=== PATIENT | female | born 1930 | race Caucasian/White ===

== ENCOUNTER 2017-02-20 10:45 | Observation (INO) ==
[2017-02-20] MEDS ORDERED: 0.9 % Sodium Chloride 1,000 ML IVC ONE ×2 (11:06→11:48)
--- NOTE | 2017-02-20 11:27 | Emergency Department Note ---
Disposition Clinical Impression: UTI (urinary tract infection), Vasovagal syncope Disposition: Admitted As Inpatient Condition: Fair Referrals: Scotty Ya DO [Primary Care Provider] - Forms: ED Satisfaction Letter Time of Disposition: 12:46 Syncope HPI - General Chief Complaint: ED Syncope Stated Complaint: Syncope Time Seen by Provider: 02/20/17 10:59 Source: patient, family Limitations: no limitations Nursing Notes Reviewed: Yes Vital Signs Reviewed: Yes - History of Present Illness HPI Narrative: Patient presents to the ED with the chief complaint of syncope. Patient reports that she has been feeling fine recently. States that she was sitting at her dining room table this morning and the next thing she knew her niece was shaking her and telling her to wake up. She apparently had a syncopal episode. There was no seizure-like activity. Reports that when she woke up, she became very nauseated and vomited twice. States that she feels very weak all over. She also states that she feels slightly lightheaded and like her ears are stuffy. She denies any chest pain, discomfort, heaviness or shortness of breath. There is no associated abdominal pain. 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 - Related Data Allergies Allergy/AdvReac Type Severity Reaction Status Date / Time celecoxib [From Celebrex] AdvReac Vomiting Verified 09/05/15 10:00 codeine AdvReac Vomiting Verified 09/05/15 10:00 piroxicam [From Feldene] AdvReac See Verified 09/05/15 10:00 Comments All systems ED: reviewed and negative except as stated. Constitutional: Reports: weakness Eyes: Denies: vision change Cardiovascular: Denies: chest pain Respiratory: Denies: dyspnea Gastrointestinal: Reports: nausea, vomiting Musculoskeletal: Denies: back pain, neck pain Neurological: Reports: as per HPI Endocrine: Reports: fatigue Past Medical History - Past Medical History Attestation: Yes The following information was validated with the patient. Source: patient Medical history: Reports: DVT, diabetes, hypertension - Social History Smoking Status: Never smoker Alcohol use: Reports: none Drug use: Reports: none Physical Exam - General General appearance: alert, in no apparent distress - Head Head exam: atraumatic, normocephalic, normal inspection - Eye Eye exam: Present: normal appearance, PERRL, EOMI - ENT ENT exam: normal exam, normal oropharynx, mucous membranes moist, other ( dentures in place ) - Neck Neck exam: Present: normal inspection, full ROM, trachea midline - Chest Chest inspection: Present: normal inspection, symmetric chest wall rise - Respiratory Respiratory exam: Present: normal lung sounds bilaterally - Cardiovascular Cardiovascular exam: Present: regular rate, normal rhythm, normal heart sounds - Abdominal Exam Abdominal exam: Present: soft, Non-Tender. Absent: tenderness, distention, guarding, rebound, rigidity - Extremities Exam Extremities exam: Present: normal inspection, full ROM, pedal edema (Bilateral lower extremity edema, nonpitting, patient reports improved). Absent: tenderness - Expanded Lower Extremity Exam Hip/Pelvis exam: Present: pelvis stable - Neurological Exam Neurological exam: Present: alert, oriented X3 - Psychiatric Psychiatric exam: Present: normal affect, normal mood - Skin Skin exam: Present: warm, dry, intact, normal color Course Course Narrative: Patient presenting to the ED after a syncopal episode. Patient vital signs currently stable. Will workup with disposition pending. 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 Unclear if this could be cardiogenic or neurologic in origin. We will admit to the hospitalist service. No active bleeding. We will obviously have her hold her Coumadin. No signs of bleeding currently. Urinalysis is pending. Microscopy, but she does have large leuk esterase, we will go ahead and dose her with Rocephin while microscopy and culture is pending. Vital Signs Temperature 97.3 F L 02/20/17 10:57 Pulse Rate 74 02/20/17 10:57 Respiratory Rate 22 02/20/17 10:57 Blood Pressure 142/77 02/20/17 10:57 O2 Sat by Pulse Oximetry 100 02/20/17 10:57 Temperature 97.3 F L 02/20/17 10:57 Pulse Rate 72 02/20/17 12:22 Respiratory Rate 22 02/20/17 12:22 Blood Pressure 106/63 02/20/17 12:22 O2 Sat by Pulse Oximetry 99 02/20/17 12:22 Oxygen Delivery Oxygen Delivery Room Air Syncope - Lab Data Result diagrams: 02/20/17 11:25 02/20/17 11:25 Lab Results 02/20/17 02/20/17 02/20/17 Range/Units 11:25 11:25 11:25 WBC 7.4 (4.3-11.1) K/mcL RBC 3.75 L (3.82-4.97) M/mcL Hgb 11.6 (11.5-15.4) g/dL Hct 34.7 L (35.3-44.9) % MCV 92.5 (83.0-100.0) fL MCH 30.9 (28.0-33.3) pg MCHC 33.4 (31.6-35.5) g/dL RDW 12.9 (11.5-14.5) % Plt Count 192 (140-400) K/mcL MPV 10.9 (9.4-12.4) fL Immature Gran % 0.3 (0-4) % Seg Neutrophils % 64.0 % Lymphocytes % 26.1 % Monocytes % 7.3 % Eosinophils % 1.8 % Basophils % 0.5 % Neutrophils # 4.7 (1.6-8.9) K/mcL Lymphocytes # 1.9 (0.6-4.6) K/mcL Monocytes # 0.5 (0.0-1.3) K/mcL Eosinophils # 0.1 (0.0-0.6) K/mcL Basophils # 0.0 (0.0-0.2) K/mcL PT 48.2 H* (9.4-12.1) Seconds INR 4.3 APTT 47.2 H (26.0-36.0) Seconds Sodium 138 (136-145) mEq/L Potassium 4.3 (3.5-4.5) mEq/L Chloride 106 (98-109) mEq/L Carbon Dioxide 17 L (19-29) mEq/L BUN 39 H (7-20) mg/dL Creatinine 1.51 H (0.57-1.11) mg/dL Est GFR ( Amer) 40 L (> 60) Est GFR (Non-Af Amer) 33 L (> 60) BUN/Creatinine Ratio 26 (6-26) Glucose 226 H (70-99) mg/dL Calculated Osmolality 302 H (280-300) Lactic Acid (0.5-2.2) mmol/L Calcium 9.8 (8.6-10.8) mg/dL Troponin I (0-0.03) ng/mL Urine Color (Yellow) Urine Clarity (Clear) Urine pH (5.0-8.0) pH Units Ur Specific [place] (1.010-1.025) Urine Protein (Neg-Trace) mg/dL Urine Glucose (UA) (Normal) mg/dL Urine Ketones (Negative) mg/dL Urine Blood (Negative) Urine Nitrite (Negative) Urine Bilirubin (Negative) Urine Urobilinogen (Normal) mg/dL Ur Leukocyte Esterase (Negative) 02/20/17 02/20/17 02/20/17 Range/Units 11:25 11:25 12:03 WBC (4.3-11.1) K/mcL RBC (3.82-4.97) M/mcL Hgb (11.5-15.4) g/dL Hct (35.3-44.9) % MCV (83.0-100.0) fL MCH (28.0-33.3) pg MCHC (31.6-35.5) g/dL RDW (11.5-14.5) % Plt Count (140-400) K/mcL MPV (9.4-12.4) fL Immature Gran % (0-4) % Seg Neutrophils % % Lymphocytes % % Monocytes % % Eosinophils % % Basophils % % Neutrophils # (1.6-8.9) K/mcL Lymphocytes # (0.6-4.6) K/mcL Monocytes # (0.0-1.3) K/mcL Eosinophils # (0.0-0.6) K/mcL Basophils # (0.0-0.2) K/mcL PT (9.4-12.1) Seconds INR APTT (26.0-36.0) Seconds Sodium (136-145) mEq/L Potassium (3.5-4.5) mEq/L Chloride (98-109) mEq/L Carbon Dioxide (19-29) mEq/L BUN (7-20) mg/dL Creatinine (0.57-1.11) mg/dL Est GFR ( Amer) (> 60) Est GFR (Non-Af Amer) (> 60) BUN/Creatinine Ratio (6-26) Glucose (70-99) mg/dL Calculated Osmolality (280-300) Lactic Acid 3.5 H (0.5-2.2) mmol/L Calcium (8.6-10.8) mg/dL Troponin I 0.00 (0-0.03) ng/mL Urine Color Yellow (Yellow) Urine Clarity Cloudy A (Clear) Urine pH 7.0 (5.0-8.0) pH Units Ur Specific [place] 1.022 (1.010-1.025) Urine Protein Trace (Neg-Trace) mg/dL Urine Glucose (UA) Normal (Normal) mg/dL Urine Ketones 15 H (Negative) mg/dL Urine Blood Negative (Negative) Urine Nitrite Negative (Negative) Urine Bilirubin Negative (Negative) Urine Urobilinogen Normal (Normal) mg/dL Ur Leukocyte Esterase Large H (Negative) - EKG Data EKG attestation: Yes I reviewed and interpreted this EKG. EKG results narrative: Sinus rhythm with first-degree AV block, rate 71, FL interval 288, QRS 142, QTC 448, right bundle branch block that is unchanged from previous on 09/02/2015 S.Devante - Luis Situation: Demographics, MOA Background: Presenting Complaint, Relevant PMH, Meds, & Allergies Assessment: Vital Signs, Course and respsone to treatment, Exam Concerns, Patient/Family Expectation, Pertinant Lab Results, Outstanding Labs Recommendation: Barrier(s) to disposition, Recommendation based on pending studies, treatments, or consults S.B.A.Monica Report Given to: Berny Smith Repor Time: 12:47
[2017-02-20 11:33] LABS: Basophils % 0.5 %; Eosinophils # 0.1 K/mcL (0.0-0.6); Eosinophils % 1.8 %; Hematocrit 34.7 % (35.3-44.9); Hemoglobin 11.6 g/dL (11.5-15.4); Immature Granulocytes % 0.3 % (0-4); Lymphocytes # 1.9 K/mcL (0.6-4.6); Lymphocytes % 26.1 %; Mean Corpuscular HGB Conc 33.4 g/dL (31.6-35.5); Mean Corpuscular Hemoglobin 30.9 pg (28.0-33.3); Mean Corpuscular Volume 92.5 fL (83.0-100.0); Mean Platelet Volume 10.9 fL (9.4-12.4); Monocytes # 0.5 K/mcL (0.0-1.3); Monocytes % 7.3 %; Neutrophils # 4.7 K/mcL (1.6-8.9); Platelet Count 192 K/mcL (140-400); Red Blood Count 3.75 M/mcL (3.82-4.97); Red Cell Distribution Width 12.9 % (11.5-14.5)
[2017-02-20 11:40] LABS: Activated Partial Thrombo Time 47.2 Seconds (26.0-36.0)
[2017-02-20 11:42] LABS: INR 4.3
[2017-02-20 11:44] LABS: Prothrombin Time 48.2 Seconds (9.4-12.1)
[2017-02-20 11:45] LABS: Calcium 9.8 mg/dL (8.6-10.8); Potassium 4.3 mEq/L (3.5-4.5)
--- NOTE | 2017-02-20 12:13 | Emergency Department Note ---
START Narrative - START START: I examined this patient and my medical decision-making was reviewed with the Resident Physician. I agree with the documented findings, disposition and treatment plan as described except to the extent set forth below. 86 showed female presents for syncope while sitting at the table today. Patient apparently slumped over in her seat. Family thought she was unresponsive for around a minute. No history of such in the past. Workup for syncope with cardiac etiology versus a neurocardiogenic syncope. 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 She is also having some hearing difficulties. Patient will need to be admitted.
[2017-02-20 12:31] LABS: Bilirubin,Urine Negative (Negative); Blood,Urine Negative (Negative); Clarity,Urine Cloudy (Clear); Color,Urine Yellow (Yellow); Glucose,Urine (UA) Normal (Normal); Ketones,Urine 15 mg/dL (Negative); Leukocyte Esterase,Urine Large (Negative); Nitrite,Urine Negative (Negative); Protein,Urine Trace mg/dL (Neg-Trace); Specific Gravity,Urine 1.022 (1.010-1.025); Urobilinogen,Urine Normal (Normal)
[2017-02-20 12:37] LABS: Bacteria,Urine Moderate per hpf (None-Few); Hyaline Casts,Urine None Seen per lpf (None-Few); Squamous Epithelial Cell,Urine Moderate per lpf (None-Few); WBC,Urine 50-100 per hpf (0-3)
[2017-02-20 12:47] LABS: RBC,Urine 0-3 per hpf (0-3)
[2017-02-20] MEDS ORDERED: Ondansetron 4 MG/2 ML VIAL IVP PRN (13:29)
[2017-02-20] MEDS ORDERED: Naloxone 0.4 MG/ML INJ IVP PRN (13:29)
[2017-02-20] MEDS ORDERED: Acetaminophen 325 MG TABLET PO PRN (13:29)
[2017-02-20] MEDS ORDERED: D5% in Water 1,000 ML IVC PRN (13:57)
[2017-02-20] MEDS ORDERED: *HR* Dextrose 50 % in Water (Syg) 50 ML SYRINGE IVP PRN (13:57)
[2017-02-20] MEDS ORDERED: Dextrose Gel 15 GM PO PRN ×2 (13:57)
--- NOTE | 2017-02-20 14:02 | Internal Med History&Physical ---
Date of Encounter: 02/21/17 Time of Encounter: 14:02 Assessment and Plan (1) Syncope Current visit: Yes Status: Acute 1 patient had syncopal episode this a.m. after awaking began to vomit and had a second syncopal episode. She also experienced temporary hearing loss Differential that could contribute to this episode include stroke: CT of head does show old infarct as well as patient has history of hypertension she is on Coumadin for past history of DVT. Patient does have a urinary tract infection which could have contributed to the episode, patient is on blood pressure medications possibly orthostatic hypotension or cardiac event. We will obtain an MRI 2 continuous cardiac monitoring 3 we will obtain cardiac echo 4 obtain carotid Dopplers 5 obtain lipid profile and start on statin Lipitor 40 6 aspirin daily 7 neurological assessments 8 fall precautions 9 consult neurology as needed 10 consult PT and OT 11 obtain orthostatic vital signs Qualifiers: Syncope type: unspecified Qualified Code(s): R55 - Syncope and collapse (2) Hypertension Current visit: Yes Status: Acute 1 we will continue with amlodipine as well as clonidine. We will hold Lasix and lisinopril for now. Patient did have a syncopal episode unsure this is contributing to orthostatic hypotension. We will check vital signs Qualifiers: Hypertension type: essential hypertension Qualified Code(s): I10 - Essential (primary) hypertension (3) Diabetes mellitus Current visit: Yes Status: Acute We will hold oral medications for now. Accu-Cheks before meals at bedtime for sinus scale insulin 2 diabetic diet Qualifiers: Diabetes mellitus type: type 2 Diabetes mellitus complication status: with kidney complications Diabetes mellitus complication detail: with chronic kidney disease Diabetes mellitus truck terminal manager insulin use: without truck terminal manager use Chronic kidney disease stage: stage 3 (moderate) Qualified Code(s): E11.22 - Type 2 diabetes mellitus with diabetic chronic kidney disease; N18.3 - Chronic kidney disease, stage 3 (moderate); N18.3 - Chronic kidney disease, stage 3 (moderate) (4) Supratherapeutic international normalized ratio (INR) Current visit: Yes Status: Acute Presently INR is 4.3. We will hold tonight's dose and recheck in the a.m. Pharmacy to dose Coumadin, goal is 2.5-3 (5) History of DVT (deep vein thrombosis) Current visit: No Status: Chronic Patient has had history of DVT 2. Last incident occurred 2 years ago. She is on Coumadin. We will continue check INRs daily adjust per pharmacy to dose (6) UTI (urinary tract infection) Current visit: Yes Status: Acute Urinalysis indicative of UTI we will start her on Rocephin. Awaiting sensitivity Qualifiers: Urinary tract infection type: site unspecified Hematuria presence: without hematuria Qualified Code(s): N39.0 - Urinary tract infection, site not specified (7) DVT prophylaxis Current visit: Yes Status: Acute Patient is on Coumadin Internal Medicine - H&P: HPI Chief complaint: syncope Admitted From: Emergency Dept Plans for Post Hospital Care: Home History of present illness: Ms. Jones is a 86 year old female with a past medical history of diabetes CKD stage III history of DVTs on Coumadin. According to the patient she has been her usual state of health she woke this morning complete her daily routine. She was at her kitchen table and had a syncopal episode which was witnessed by her niece. Episode lasted less than a minute when she aroused she vomited several times. Then had another episode where she lost consciousness for a few seconds,again this was witnessed. There was no jerking or loss of bowel bladder. She denied any palpitations headaches short of breath or chest pain prior to the episode. Afterward she did experience some hearing loss. She felt as if her head was congested and everything sounded muffled. Her hearing has returned back to baseline. She presented to the ER with the above complaints. ER workup CT of head with contrast revealed remote infarct posterior right parietal. Lab work with no leukocytosis chemistry with elevated creatinine . INR is supratherapeutic at 4.3 lactate was 3.5 urine was positive UTI she denies any fevers chills chest pain shortness of breath abdominal pain palpitations headaches vision changes or urinary symptoms alert appropriate neurologically intact with no focal deficits no ataxia or facial droop. She has been admitted for further workup and evaluation. Present she is hemodynamically stable and could review this case with Dr. Pedraza who agrees with plan. Past Med Surg Social Fam HX - Past Medical History Medical history: DVT, diabetes, hypertension - Social History Smoking Status: Never smoker Alcohol use: none Drug use: none - Family History Father Living Status: Cause of : MD Hx Family Cardiac Disorders: Yes (MD) Mother Living Status: Hx Family Cardiac Disorders: Yes (MD) Hx Family Endocrine Disorder: Yes (DI) Internal Medicine - H&P: Meds Amlodipine Besylate 10 mg PO DAILY 02/20/17 [History] Cholecalciferol (Vitamin D3) [Vitamin D] 2,000 unit PO DAILY 02/20/17 [History] Ferrous Sulfate [Iron] 325 mg PO DAILY 02/20/17 [History] Fish Oil/Dha/Epa [Fish Oil 1,200 mg Fish Oil] 1 cap PO DAILY 02/20/17 [History] Furosemide [Lasix] 40 mg PO DAILY 02/20/17 [History] L. Acidophilus/Pectin, [place] [Acidophilus Probiotic Capsule] 1 cap PO DAILY [History] Lisinopril [Zestril] 20 mg PO BID 02/20/17 [History] Multivitamin [Multivitamins] 1 tab PO DAILY 02/20/17 [History] Warfarin [Coumadin] 2.5 mg PO SUMOWEFR 02/20/17 [History] Warfarin [Coumadin] 3.75 mg PO TUTHSA 02/20/17 [History] cloNIDine HCl [Clonidine HCl] 0.3 mg PO BID 02/20/17 [History] glipiZIDE [Glipizide] 10 mg PO BID 02/20/17 [History] metFORMIN [Glucophage] 1,000 mg PO BID 02/20/17 [History] 3 Allergy/AdvReac Type Severity Reaction Status Date / Time celecoxib [From Celebrex] AdvReac Vomiting Verified 09/05/15 10:00 codeine AdvReac Vomiting Verified 09/05/15 10:00 piroxicam [From Feldene] AdvReac See Verified 09/05/15 10:00 Comments All Systems PM: A 10-system review of systems was performed and is negative for pertinent findings except as documented above in the HPI. - Constitutional Constitutional: no chills, no fever(s), no night sweats - EENT Eyes: no change in vision, no discharge, no pain, no photophobia Ears: decreased hearing Nose, mouth and throat: no dysphagia, no nasal discharge, no neck pain, no sore throat - Cardiovascular Cardiovascular ROS IM: no chest pain, no diaphoresis, no dyspnea, no lightheadedness, no palpitations, no syncope - Respiratory Respiratory: no cough, no dyspnea, no wheezing, no excessive phlegm production - Gastrointestinal Gastrointestinal: nausea, vomiting, no abdominal pain, no diarrhea, no hematemesis, no hematochezia, no melena - Genitourinary Genitourinary: no change in urinary stream, no dysuria, no flank pain, no hematuria - Integumentary Integumentary IM: no rash, no unusual bruising - Neurological Neurological ROS: no confusion, no convulsions, no focal weakness, no numbness, no tingling, no tremor(s) - Constitutional Vitals: Temp Pulse Resp BP Pulse Ox 97.3 F L 72 16 136/61 99 02/20/17 10:57 02/20/17 12:22 02/20/17 13:48 02/20/17 13:48 02/20/17 12:22 General appearance: Present: A&O X 3, answers questions appropriately - Head Head exam: Present: atraumatic, normocephalic - Eye Eye exam: Present: PERRL, conjuntiva pink, sclera anicteric Pupils: Present: PERRL - Neck Neck exam general surgery: Present: supple, trachea midline. Absent: lymphadenopathy - Respiratory Respiratory exam: Present: CTAB. Absent: accessory muscle use, rales, rhonchi, wheezes - Cardiovascular Cardiovascular exam: Present: RRR, +S1, +S2, systolic murmur. Absent: diastolic murmur, gallop, rubs - GI/Abdominal GI/Abdominal exam: Present: normal bowel sounds, soft, no peritoneal signs. Absent: distended, tenderness - Extremities Exam Extremities exam: Present: warm, radial pulses palpable and symmetrical. Absent : calf tenderness, cyanotic, pedal edema - Neurological Exam Neurological exam: Present: CN II-XII intact, oriented X3, no focal deficits. Absent: pronater drift, facial droop, speech deficit - Skin Skin exam: Present: dry, intact Internal Med - H&P Results - Labs CBC & Chem 7: 02/20/17 11:25 02/20/17 11:25 - EKG Data EKG shows normal: sinus rhythm - EKG Data Prior EKG available for review: yes EKG comments: 02/20/17 15:32 Patient has sinus rhythm with right bundle-branch block and first-degree AV block which appears to be new from previous EKG which only shows right bundle branch - Diagnostic Studies Other Images Additional comments: Chest X-Ray 02/20/17 11:06 IMPRESSION: No acute cardiopulmonary findings. D/ / Loraine Carvalho MD / Loraine Carvalho MD Interpreting Provider: Loraine Carvalho MD Head CT 02/20/17 11:06 IMPRESSION: No hemorrhage or mass Mild atrophy with mild small vessel ischemic change. More focal remote infarct is seen in the posterior right parietal lobe D/ / Tonny Giraldo MD / Tonny Giraldo MD Interpreting Provider: Tonny Giraldo MD
[2017-02-20] MEDS: Insulin LISPRO 300 UNITS/3 ML VIAL SQ SCH ×2 (16:50→23:33)
[2017-02-20] MEDS ORDERED: Warfarin perPT PO PRN (18:00)
--- NOTE | 2017-02-20 19:14 | Event Note ---
Date of Encounter: 02/20/17 Time of Encounter: 19:11 I independently obtained history and examined this patient and my medical decision-making was reviewed with the nurse practitioner, Beba Page. I agree with the documented findings, disposition and treatment plan as described. My findings are summarized below: She was brought to the hospital for evaluation of syncope. No prodromal syndrome. No chest pain, no preceding illnesses. No history of dehydration. She does take several blood pressure medications including clonidine and metoprolol amlodipine lisinopril and Lasix. On exam she is in no acute distress awake alert oriented heart is regular S1-S2 with a systolic murmur best heard at the apex. EKG reveals normal sinus rhythm rate of 74 with a first-degree A-V block and right bundle branch block old when compared to the EKG from August 2015. Plan: Workup for syncope including Telemetry, echocardiogram, trend troponin. Check MRI of the brain. I would add a consult to cardiology and possibly Holter monitoring on discharge to detect pauses or bradyarrhythmia given sudden onset of symptoms and EKG with AV block and right bundle branch block.
[2017-02-20] MEDS ORDERED: Lisinopril 20 MG TABLET PO SCH (21:00)
[2017-02-20] MEDS: cloNIDine HCl 0.1 MG TABLET PO SCH (23:56)
[2017-02-21 05:35] LABS: Basophils % 0.6 %; Eosinophils # 0.2 K/mcL (0.0-0.6); Eosinophils % 2.6 %; Hematocrit 32.9 % (35.3-44.9); Hemoglobin 10.8 g/dL (11.5-15.4); Immature Granulocytes % 0.3 % (0-4); Lymphocytes # 2.4 K/mcL (0.6-4.6); Lymphocytes % 34.2 %; Mean Corpuscular HGB Conc 32.8 g/dL (31.6-35.5); Mean Corpuscular Hemoglobin 30.9 pg (28.0-33.3); Mean Platelet Volume 10.9 fL (9.4-12.4); Monocytes # 0.7 K/mcL (0.0-1.3); Monocytes % 9.6 %; Neutrophils # 3.6 K/mcL (1.6-8.9); Platelet Count 196 K/mcL (140-400); Red Cell Distribution Width 13.3 % (11.5-14.5); Segmented Neutrophils % 52.7 %
[2017-02-21 05:44] LABS: INR 4.2
[2017-02-21 05:48] LABS: Prothrombin Time 47.1 Seconds (9.4-12.1)
[2017-02-21 05:49] LABS: Chol/HDL Ratio 3.8 (0-4.9); Magnesium 1.9 mg/dL (1.6-2.6); Potassium 4.2 mEq/L (3.5-4.5)
[2017-02-21] MEDS ORDERED: amLODIPine 5 MG TABLET PO SCH (09:00)
[2017-02-21] MEDS: Insulin LISPRO 300 UNITS/3 ML VIAL SQ SCH ×4 (09:01→20:24)
[2017-02-21] MEDS: Multivit/Ca/Min/Fe/FA 1 TAB TABLET PO SCH (09:09)
[2017-02-21] MEDS: Lactobacillus 1 EACH CAP.SPRINK PO SCH (09:09)
[2017-02-21] MEDS: Furosemide 40 MG TABLET PO SCH (09:09)
[2017-02-21] MEDS: cloNIDine HCl 0.1 MG TABLET PO SCH ×2 (09:09→20:24)
[2017-02-21] MEDS: (Fish Oil/Dha/Epa [Fish Oil 1,200 Mg Fish Oil] 1 CAP) PO SCH (09:11)
--- NOTE | 2017-02-21 11:44 | Cardiology Consult Note ---
Date of Encounter: 02/21/17 Time of Encounter: 11:43 Assessment and Plan (1) Syncope Current Visit: Yes Status: Acute Cardiac work-up includes troponin that is negative. EKG shows SR, RBBB, with first degree block. No change from previous. TTE completed showed LVEF 65%. Normal left ventricular size and systolic function. There is evidence of mild diastolic dysfunction of the left ventricle. Normal right ventricular size and function. Mild aortic regurgitation. Moderate mitral regurgitation. Mild-moderate tricuspid regurgitation. Mild pulmonary hypertension. Telemetry shows NSR. Avg HR was 68 bpm. Lowest HR 52 BPM at 0400am. No pauses. No VT. Preliminary CUS was negative. No findings to account for syncopal event from cardiac standpoint seen at this time. No indication for further cardiac testing. Qualifiers: Syncope type: unspecified Qualified Code(s): R55 - Syncope and collapse Discussion w patient/family: The assessment and plan as outlined above was discussed with the patient and/or family members who expressed understanding and agreement. All questions were answered. Thank you for involving us in the care of your patient. Please call with any questions. History of Present Illness Consult date: 02/21/17 Requesting physician: Erick Pedraza Consult reason: Syncope Chief complaint: Syncope x2, nausea and vomiting History of present illness: Ms. Jones is a 86 year old female who presented from home after she was witnessed to pass out while sitting in her kitchen dinning chair. Her niece had just walked in to have lunch with her. She reported that she did not fall forward , she became rigid and unresponsive. She started to vomit after waking up. Her nephew walked her to another chair where she passed out again. She reports having difficulty hearing after waking up. She did have a MRI of her head that showed no acute event. The was an old infarct . EKG showed SR with first degree block. There was no change from previous EKG. Troponin was negative. She was found to have mild LESLEY and a UTI. Cardiology consulted for syncope. PMH of HTN. 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 Past Med Surg Social Fam HX - Past Medical History Medical history: DVT, diabetes, hypertension - Past Surgical History Surgical History: appendectomy, cholecystectomy - Social History Smoking Status: Never smoker Smokeless Tobacco Status: No Alcohol use: none Drug use: none - Family History Father Living Status: Cause of : MS Hx Family Cardiac Disorders: Yes (MS) Mother Living Status: Hx Family Cardiac Disorders: Yes (MS) Hx Family Endocrine Disorder: Yes (DI) Medications and Allergies Amlodipine Besylate 10 mg PO DAILY 02/20/17 [History] Cholecalciferol (Vitamin D3) [Vitamin D] 2,000 unit PO DAILY 02/20/17 [History] Ferrous Sulfate [Iron] 325 mg PO DAILY 02/20/17 [History] Fish Oil/Dha/Epa [Fish Oil 1,200 mg Fish Oil] 1 cap PO DAILY 02/20/17 [History] Furosemide [Lasix] 40 mg PO DAILY 02/20/17 [History] L. Acidophilus/Pectin, [place] [Acidophilus Probiotic Capsule] 1 cap PO DAILY [History] Lisinopril [Zestril] 20 mg PO BID 02/20/17 [History] Multivitamin [Multivitamins] 1 tab PO DAILY 02/20/17 [History] Warfarin [Coumadin] 2.5 mg PO SUMOWEFR 02/20/17 [History] Warfarin [Coumadin] 3.75 mg PO TUTHSA 02/20/17 [History] cloNIDine HCl [Clonidine HCl] 0.3 mg PO BID 02/20/17 [History] glipiZIDE [Glipizide] 10 mg PO BID 02/20/17 [History] metFORMIN [Glucophage] 1,000 mg PO BID 02/20/17 [History] 3 Allergy/AdvReac Type Severity Reaction Status Date / Time celecoxib [From Celebrex] AdvReac Vomiting Verified 09/05/15 10:00 codeine AdvReac Vomiting Verified 09/05/15 10:00 piroxicam [From Feldene] AdvReac See Verified 09/05/15 10:00 Comments All Systems Review: A 10-system review of systems was performed and is negative for pertinent findings except as documented above in the HPI. Physical Examination Vital Signs Temp Pulse Resp BP Pulse Ox 02/21/17 11:54 97.9 F 59 16 130/61 98 02/21/17 06:52 98.3 F 61 15 155/76 98 02/21/17 03:34 98.3 F 56 16 132/60 97 02/20/17 23:41 97.5 F L 77 16 171/64 95 02/20/17 19:19 98.4 F 80 16 146/75 97 02/20/17 15:24 98.5 F 82 16 150/65 97 02/20/17 13:48 16 136/61 02/20/17 12:22 72 22 106/63 99 Intake and Output 02/20/17 02/21/17 02/21/17 23:59 07:59 15:59 Output Total 1000 / 1000 300 / 300 300 / 300 Balance -1000 / -1000 -300 / -300 -300 / -300 Output: Urine 1000 / 1000 300 / 300 300 / 300 Other: Weight 88.054 kg Blood Glucose* 140 151 157 Patient Weight 02/21/17 23:59 Weight 88.054 kg General: Conversant, No Apparent Distress HEENT: Atraumatic, Normocephaly, Mucus Membranes Moist Neck: No JVD, Normal carotid pulses Cardiac: Reg Rate and Rhythm, Normal S1 and S2, No Murmur Lungs: Normal Breath Sounds, No Wheeze, Rales, Rhonchi Neuro: Alert and responsive, No focal deficits noted Abdomen: Soft, Non-Tender Skin: No rashes noted on visualized skin Musculoskeletal: No Chest Wall Tenderness Extremities: No Clubbing, No Cyanosis, Normal Pulses, Other (LLE trace edema. TRISTAN hose intact. ) Results 02/21/17 05:06 02/21/17 05:06 Lab Results 02/20/17 02/20/17 02/21/17 16:59 23:47 05:06 WBC 6.9 Hgb 10.8 L Hct 32.9 L Plt Count 196 INR Sodium Potassium Chloride Carbon Dioxide BUN Creatinine Glucose Calcium Magnesium Troponin I 0.00 0.01 02/21/17 02/21/17 05:06 05:06 WBC Hgb Hct Plt Count INR 4.2 Sodium 139 Potassium 4.2 Chloride 110 H Carbon Dioxide 23 BUN 24 H D Creatinine 1.09 Glucose 157 H Calcium 9.0 Magnesium 1.9 Troponin I Chest X-Ray 02/20/17 11:06 IMPRESSION: No acute cardiopulmonary findings. D/ / Loraine Carvalho MD / Loraine Carvalho MD Interpreting Provider: Loraine Carvalho MD Head CT 02/20/17 11:06 IMPRESSION: No hemorrhage or mass Mild atrophy with mild small vessel ischemic change. 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 D/ / Andrés Mccain / Andrés Mccain Interpreting Provider: Andrés Mccain Echocardiogram 02/21/17 13:44 Impressions: LVEF 65%. Normal left ventricular size and systolic function. There is evidence of mild diastolic dysfunction of the left ventricle. Normal right ventricular size and function. Mild aortic regurgitation. Moderate mitral regurgitation. Mild-moderate tricuspid regurgitation. Mild pulmonary hypertension. Left Ventricular Wall Motion: Rest Echo Findings All wall segments showed normal motion. - Imaging and Cardiology Echo: report reviewed - EKG Interpretation EKG results cardiology: personally reviewed Consult Discharge Plan - Plan Referrals: Scotty Ya DO [Primary Care Provider] -
[2017-02-21] MEDS: Pantoprazole 40 MG VIAL IVP SCH (14:24)
--- NOTE | 2017-02-21 18:04 | Electrocardiograph Report ---
[place] [id number] Test Date: 2017-02-20 Pat Name: Martha Jones Department: 102 Room: 3B Gender: F Steel Layer: : 1930 Requested By: Zana Diaz Order Number: [id number] Reading MD: Gio Young MD Measurements Intervals Evans Rate: 71 P: 62 AR: 288 QRS: 52 QRSD: 142 T: 13 QT: 425 QTc: 448 Interpretive Statements SINUS RHYTHM WITH FIRST DEGREE AV BLOCK RIGHT BUNDLE BRANCH BLOCK BASELINE ARTIFACT Electronically Signed On 02-21-2017 18:02:58 EDT by Gio Young MD
--- NOTE | 2017-02-21 18:16 | Internal Med Progress Note ---
Date of Encounter: 02/21/17 Time of Encounter: 14:00 - Assessment and plan (1) Syncope Current Visit: Yes Status: Acute Assessment and plan: Patient presented to the emergency department with a syncopal episode this morning after awakening. She states she began to vomit and then had a second syncopal episode. She also experienced temporary hearing loss. Patient has returned to baseline. Echocardiogram shows LVEF of 65% with normal LV systolic function, mild LVDD, mild AR, mild MR, mild to moderate TR. ALL wall segments showed normal motion. Brain MRI showed mild small vessel ischemic changes bilaterally and an old infarction right occipital pole with encephalomalacia and a small amount of hemosiderin. There is no acute infarct. Head CT without contrast showed no hemorrhage or mass, mild atrophy with mild small vessel ischemic changes. There is a more focal remote infarct posterior right parietal. Echocardiogram showed sinus rhythm with first-degree AV block and right bundle branch block. Rate was 71, NH interval 288, QRS 142, QTC 448. Chest x-ray was negative for any acute cardiopulmonary findings. Carotid Dopplers were normal bilaterally. Patient's vital signs and stable and within normal limits. Patient is mildly anemic at 10.8 hemoglobin. Serum creatinine is within normal limits, October 07. Patient had some mild hyperglycemia. Lactic acid was mildly elevated 3.5. The urine that was collected in the emergency department was cloudy positive for ketones, large amount leukocyte esterase 50-100 microscopic white cells, moderate bacteria. Culture is indicated and pending. Patient has no white count, no tachycardia and no fever and no tachypnea serum creatinine is within normal limits. She is not meeting any sepsis criteria with the UTI. Most likely cause of syncope was mild dehydration/infection versus vasovagal syncope. Continue telemetry Aspirin daily Neurological assessments Fall precautions Consult PT/OT Orthostatic vital signs ordered. Qualifiers: Syncope type: unspecified Qualified Code(s): R55 - Syncope and collapse (2) UTI (urinary tract infection) Current Visit: Yes Status: Acute Assessment and plan: The urine that was collected in the emergency department was cloudy, positive for ketones, large amount leukocyte esterase, 50-100 microscopic white cells, moderate bacteria. Culture is indicated and pending. Patient has no white count, no tachycardia and no fever and no tachypnea serum creatinine is within normal limits. She is not meeting any sepsis criteria with the UTI. She denies any urinary symptoms and states she was not aware that she had a urinary tract infection. Encourage by mouth fluid intake Rocephin 1 g IV daily. Monitor for final culture and sensitivity for any necessary antibiotic adjustments. Qualifiers: Urinary tract infection type: site unspecified Hematuria presence: without hematuria Qualified Code(s): N39.0 - Urinary tract infection, site not specified (3) Hypertension Current Visit: Yes Status: Acute Assessment and plan: Chronic. Continue home medications. Well-controlled in inpatient setting. Qualifiers: Hypertension type: essential hypertension Qualified Code(s): I10 - Essential (primary) hypertension (4) Diabetes mellitus Current Visit: Yes Status: Acute Assessment and plan: A1c is 5.4 one year ago. Will redraw in the morning. Continue sliding scale insulin, Accu-Cheks, diabetic diet. Qualifiers: Diabetes mellitus type: type 2 Diabetes mellitus complication status: with kidney complications Diabetes mellitus complication detail: with chronic kidney disease Diabetes mellitus intermission coordinator insulin use: without intermission coordinator use Chronic kidney disease stage: stage 3 (moderate) Qualified Code(s): E11.22 - Type 2 diabetes mellitus with diabetic chronic kidney disease; N18.3 - Chronic kidney disease, stage 3 (moderate); N18.3 - Chronic kidney disease, stage 3 (moderate) (5) DVT prophylaxis Current Visit: Yes Status: Acute Assessment and plan: Patient is on Coumadin. Pharmacy to dose. (6) Supratherapeutic international normalized ratio (INR) Current Visit: Yes Status: Acute Assessment and plan: INR supratherapeutic at 4.2. Coumadin has been held. - Time Spent With Patient less than 15 minutes - Subjective Interval history: Patient was seen and assessed at 1400. Patient has lost her IV access, I attempted 1. There are multiple family members at bedside, questions were answered. Patient denies chest pain. She denies nausea, vomiting, diaphoresis , abdominal pain, headache, lightheadedness. Patient will stay overnight for IV antibiotics and monitoring. - Constitutional Vitals: Temp Pulse Resp BP Pulse Ox 98.0 F 57 15 124/61 96 02/21/17 15:25 02/21/17 15:25 02/21/17 15:25 02/21/17 15:25 02/21/17 15:25 General appearance: Present: cooperative, A&O X 3, no acute distress, answers questions appropriately - Head Head exam: Present: atraumatic, normal inspection, normocephalic - Eye Eye exam: Present: normal appearance, conjuntiva pink, sclera anicteric - Neck Neck exam general surgery: Present: supple, trachea midline. Absent: lymphadenopathy, tenderness - Respiratory Respiratory exam: Present: CTAB. Absent: accessory muscle use, chest wall tenderness, rales, rhonchi, wheezes - Cardiovascular Cardiovascular exam: Present: RRR, +S1, +S2. Absent: diastolic murmur, gallop, rubs, systolic murmur - GI/Abdominal GI/Abdominal exam: Present: normal bowel sounds, soft, no peritoneal signs. Absent: distended, hepatomegaly, tenderness - Extremities Exam Extremities exam: Present: normal capillary refill, normal inspection, warm, radial pulses palpable and symmetrical. Absent: calf tenderness, cyanotic, pedal edema, tenderness - Neurological Exam Neurological exam: Present: CN II-XII intact, oriented X3, no focal deficits. Absent: facial droop, speech deficit - Skin Skin exam: Present: dry, intact, normal color, warm. Absent: rash Internal Medicine: Result - Labs CBC & Chem 7: 02/21/17 05:06 02/21/17 05:06 Labs: Short CBC 02/21/17 Range/Units 05:06 WBC 6.9 (4.3-11.1) K/mcL Hgb 10.8 L (11.5-15.4) g/dL Hct 32.9 L (35.3-44.9) % Plt Count 196 (140-400) K/mcL Neutrophils # 3.6 (1.6-8.9) K/mcL BMP 02/21/17 05:06 Sodium 139 Potassium 4.2 Chloride 110 H Carbon Dioxide 23 BUN 24 H D Creatinine 1.09 Glucose 157 H Calcium 9.0 Cardiac Enzymes 02/20/17 Range/Units 23:47 Troponin I 0.01 (0-0.03) ng/mL - ABG Interpretation ABG results: PT/INR, D-dimer PT 47.1 Seconds (9.4-12.1) H* 02/21/17 05:06 - Impressions Impressions Brain MRI 02/20/17 17:25 IMPRESSION: Mild small vessel ischemic changes bilaterally 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 D/ / Andrés Mccain / Andrés Mccain Interpreting Provider: Andrés Mccain Echocardiogram 02/21/17 13:44 Impressions: LVEF 65%. Normal left ventricular size and systolic function. There is evidence of mild diastolic dysfunction of the left ventricle. Normal right ventricular size and function. Mild aortic regurgitation. Moderate mitral regurgitation. Mild-moderate tricuspid regurgitation. Mild pulmonary hypertension. Left Ventricular Wall Motion: Rest Echo Findings All wall segments showed normal motion. Findings: Study Quality * Technically adequate exam. ECG Findings * Normal sinus rhythm. Left Ventricle * Normal LV chamber size, wall thickness and function. * Mild left ventricular diastolic dysfunction. * LVEF 65%. Aorta * Normally sized aortic root. Aortic Valve * Aortic valve not well visualized. * No aortic stenosis. * Mild aortic regurgitation. Mitral Valve * Normal mitral valve structure. * No mitral stenosis. * Moderate mitral regurgitation. Tricuspid Valve * Normal tricuspid valve structure. * Mild-moderate tricuspid regurgitation. * Estimated RA pressure is 3 mmHg. * Estimated RVSP is 37 mmHg. * Mild pulmonary hypertension. Pulmonic Valve * Pulmonic valve is not well visualized. * No pulmonic stenosis. * No pulmonic regurgitation. Pulmonary Artery * Pulmonary artery not well visualized. Right Ventricle * Normal right ventricular structure and function. Left Atrium * Normal left atrial size. Right Atrium * Normal right atrial size. Pericardium * There is no pericardial effusion present. Interatrial Septum * No evidence of PFO by color Doppler. IVC * Normal IVC dimensions and inspiratory collapse. - VTE Documentation of Mechanical Device: Graduated compression elastic hosiery Consult Discharge Plan - Plan Referrals: Scotty Ya DO [Primary Care Provider] -
[2017-02-22 03:46] LABS: Basophils % 0.6 %; Eosinophils # 0.2 K/mcL (0.0-0.6); Eosinophils % 3.4 %; Hematocrit 31.6 % (35.3-44.9); Hemoglobin 10.3 g/dL (11.5-15.4); Immature Granulocytes % 0.5 % (0-4); Lymphocytes # 2.5 K/mcL (0.6-4.6); Lymphocytes % 38.8 %; Mean Corpuscular HGB Conc 32.6 g/dL (31.6-35.5); Mean Corpuscular Volume 95.2 fL (83.0-100.0); Mean Platelet Volume 10.5 fL (9.4-12.4); Monocytes # 0.6 K/mcL (0.0-1.3); Monocytes % 9.4 %; Nucleated Red Blood Cells 0.3 /100 WBC (0); Platelet Count 182 K/mcL (140-400); Red Blood Count 3.32 M/mcL (3.82-4.97); Red Cell Distribution Width 13.1 % (11.5-14.5); Segmented Neutrophils % 47.3 %
[2017-02-22 04:08] LABS: Calcium 8.8 mg/dL (8.6-10.8); Potassium 4.5 mEq/L (3.5-4.5)
[2017-02-22] MEDS: Insulin LISPRO 300 UNITS/3 ML VIAL SQ SCH (07:47)
[2017-02-22] MEDS: (Fish Oil/Dha/Epa [Fish Oil 1,200 Mg Fish Oil] 1 CAP) PO SCH (08:28)
[2017-02-22] MEDS: Multivit/Ca/Min/Fe/FA 1 TAB TABLET PO SCH (08:35)
[2017-02-22] MEDS: Lactobacillus 1 EACH CAP.SPRINK PO SCH (08:35)
[2017-02-22] MEDS: Furosemide 40 MG TABLET PO SCH (08:35)
[2017-02-22] MEDS: Pantoprazole 40 MG VIAL IVP SCH (08:35)
[2017-02-22] MEDS: cloNIDine HCl 0.1 MG TABLET PO SCH (08:35)
--- NOTE | 2017-02-22 09:19 | Internal Med Progress Note ---
Date of Encounter: 02/22/17 - Constitutional Vitals: Temp Pulse Resp BP Pulse Ox 97.7 F 60 15 166/71 98 02/22/17 06:41 02/22/17 06:41 02/22/17 06:41 02/22/17 06:41 02/22/17 06:41 General appearance: Present: cooperative, A&O X 3, no acute distress, answers questions appropriately Internal Medicine: Result - Labs CBC & Chem 7: 02/22/17 03:30 02/22/17 03:30 Labs: Short CBC 02/22/17 Range/Units 03:30 WBC 6.4 (4.3-11.1) K/mcL Hgb 10.3 L (11.5-15.4) g/dL Hct 31.6 L (35.3-44.9) % Plt Count 182 (140-400) K/mcL Neutrophils # 3.0 (1.6-8.9) K/mcL BMP 02/22/17 03:30 Sodium 139 Potassium 4.5 Chloride 108 Carbon Dioxide 24 BUN 22 H Creatinine 1.08 Glucose 143 H Calcium 8.8 - ABG Interpretation ABG results: PT/INR, D-dimer PT 33.0 Seconds (9.4-12.1) H 02/22/17 04:05 - Impressions Impressions Echocardiogram 02/21/17 13:44 Impressions: LVEF 65%. Normal left ventricular size and systolic function. There is evidence of mild diastolic dysfunction of the left ventricle. Normal right ventricular size and function. Mild aortic regurgitation. Moderate mitral regurgitation. Mild-moderate tricuspid regurgitation. Mild pulmonary hypertension. Left Ventricular Wall Motion: Rest Echo Findings All wall segments showed normal motion. Findings: Study Quality * Technically adequate exam. ECG Findings * Normal sinus rhythm. Left Ventricle * Normal LV chamber size, wall thickness and function. * Mild left ventricular diastolic dysfunction. * LVEF 65%. Aorta * Normally sized aortic root. Aortic Valve * Aortic valve not well visualized. * No aortic stenosis. * Mild aortic regurgitation. Mitral Valve * Normal mitral valve structure. * No mitral stenosis. * Moderate mitral regurgitation. Tricuspid Valve * Normal tricuspid valve structure. * Mild-moderate tricuspid regurgitation. * Estimated RA pressure is 3 mmHg. * Estimated RVSP is 37 mmHg. * Mild pulmonary hypertension. Pulmonic Valve * Pulmonic valve is not well visualized. * No pulmonic stenosis. * No pulmonic regurgitation. Pulmonary Artery * Pulmonary artery not well visualized. Right Ventricle * Normal right ventricular structure and function. Left Atrium * Normal left atrial size. Right Atrium * Normal right atrial size. Pericardium * There is no pericardial effusion present. Interatrial Septum * No evidence of PFO by color Doppler. IVC * Normal IVC dimensions and inspiratory collapse. - VTE Documentation of Mechanical Device: Graduated compression elastic hosiery Consult Discharge Plan - Plan Referrals: Scotty Ya DO [Primary Care Provider] -
[2017-02-22 09:37] VITALS: BP 115/71
--- NOTE | 2017-02-22 10:30 | Discharge Summary ---
<Leisa Barakat H - Last Filed: 02/22/17 10:52> Date of Encounter: 02/22/17 Time of Encounter: 10:00 - Discharge Diagnosis (1) UTI (urinary tract infection) Priority: Secondary Status: Acute Qualifiers: Urinary tract infection type: acute cystitis Hematuria presence: without hematuria Qualified Code(s): N30.00 - Acute cystitis without hematuria (2) Syncope Priority: Primary Status: Acute Qualifiers: Syncope type: unspecified Qualified Code(s): R55 - Syncope and collapse (3) Hypertension Priority: Primary Status: Acute Qualifiers: Hypertension type: essential hypertension Qualified Code(s): I10 - Essential (primary) hypertension (4) Diabetes mellitus Priority: Secondary Status: Acute Qualifiers: Diabetes mellitus type: type 2 Diabetes mellitus complication status: with kidney complications Diabetes mellitus complication detail: with chronic kidney disease Diabetes mellitus adjunct faculty for medical terminology insulin use: without adjunct faculty for medical terminology use Chronic kidney disease stage: stage 3 (moderate) Qualified Code(s): E11.22 - Type 2 diabetes mellitus with diabetic chronic kidney disease; N18.3 - Chronic kidney disease, stage 3 (moderate); N18.3 - Chronic kidney disease, stage 3 (moderate) (5) DVT prophylaxis Priority: Secondary Status: Acute (6) Supratherapeutic international normalized ratio (INR) Priority: Secondary Status: Acute - Discharge Medications Prescriptions: Atorvastatin [Lipitor] 40 mg PO HS #30 tablet Cefdinir [Omnicef] 300 mg PO BID #4 capsule Furosemide [Lasix] 20 mg PO DAILY #30 tablet Home Medications: Cholecalciferol (Vitamin D3) [Vitamin D3] 2,000 unit PO DAILY 02/20/17 [History] Ferrous Sulfate [Iron] 325 mg PO DAILY 02/20/17 [History] Fish Oil/Dha/Epa [Fish Oil 1,200 mg Fish Oil] 1 cap PO DAILY 02/20/17 [History] L. Acidophilus/Pectin, [place] [Acidophilus Probiotic Capsule] 1 cap PO DAILY [History] Lisinopril [Zestril] 20 mg PO BID 02/20/17 [History] Multivitamin [Multivitamins] 1 tab PO DAILY 02/20/17 [History] Warfarin [Coumadin] 2.5 mg PO SUMOWEFR 02/20/17 [History] Warfarin [Coumadin] 3.75 mg PO TUTHSA 02/20/17 [History] cloNIDine HCl [Clonidine HCl] 0.3 mg PO BID 02/20/17 [History] glipiZIDE [Glipizide] 10 mg PO BID 02/20/17 [History] metFORMIN [Glucophage] 1,000 mg PO BID 02/20/17 [History] Atorvastatin [Lipitor] 40 mg PO HS tablet 02/22/17 [Rx] Atorvastatin [Lipitor] 40 mg PO HS #30 tablet 02/22/17 [Rx] Cefdinir [Omnicef] 300 mg PO BID #4 capsule 02/22/17 [Rx] Furosemide [Lasix] 20 mg PO DAILY #30 tablet 02/22/17 [Rx] Allergies/Adverse Reactions: 3 Allergy/AdvReac Type Severity Reaction Status Date / Time celecoxib [From Celebrex] AdvReac Vomiting Verified 09/05/15 10:00 codeine AdvReac Vomiting Verified 09/05/15 10:00 piroxicam [From Feldene] AdvReac See Verified 09/05/15 10:00 Comments Procedures/tests Complete & Pending: Procedures Performed prior 72 hours Category Date Time Status MR head/brain wo con [MR] Stat MRI 02/20/17 17:25 Completed EV carotid duplex imaging BI Routine Y 02/21/17 13:49 Completed EV echocardiogram Routine Y 02/21/17 13:44 Completed Date of admission: 02/20/17 12:55 Primary care physician: Scotty Ya DO Consults: 02/20/17 13:43 Consult to Occupational Therapy [CONS] Routine Comment: Evaluate, develop and implement POC Reason for Consult: syncope 02/20/17 13:44 Consult to Physical Therapy [CONS] Routine Comment: Evaluate, develop and implement POC Reason for Consult: syncope 02/20/17 14:59 Consult to Wire Coiler Machine Operator [CONS] Routine Reason for SW Consult: patient lives alone, syncopal episode 02/20/17 19:11 Consult to Cardiology [CONS] Routine Comment: Consulting Provider: Cardiology Tyra Reason for Consult: syncope - first degree AV Block RBB Time Notified: 19:13 Call Completed: No 02/21/17 14:40 PICC Consult [Consult to Invasive Line Access Team] [CONS] Routine Reason for Consult: Patient has limited IV access Line Type: EPIV - Patient Status Disposition: Home, Self-Care Condition: Good Overall status at discharge: patient is progressing back to baseline - Discharge Instructions Follow Up With: Scotty Ya DO [Primary Care Provider] - Vivek Boyce MD [Partnered Physician] - Additional Instructions: Please follow-up with your primary care provider in the next week regarding a Holter monitor. This has been suggested. There were changes made to your antihypertensive medication regimen. This includes a decrease in your normal Lasix dosing to 20 mg daily. Also, we have discontinued her amlodipine. Please continue clonidine and lisinopril as you were taking them before. In addition, we have added Lipitor to your medications. You are also being sent home with a 2 day supply of antibiotics. This was to treat your UTI. Please take these to completion. You also need to follow-up with cardiology at the number listed above in the next 2-3 weeks. - Diet and Activity Activity: increase activity as tolerated Diet: advance to your usual diet, low fat, low cholesterol Hospital course: Ms. Jones is a 86 year old female with past medical history of hypertension, diabetes mellitus, INR 4.3 on admission, history of DVT, and UTI admitted to the hospital for an episode of syncope prior to arrival. On admission, patient was found to have an INR that was supratherapeutic at 4.3. She had a lactic acid that was 3.5, and urine was positive for UTI. Patient had no other SIRS criteria. She was neurologically intact with no neurological deficits. A syncope workup was initiated. 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 There was small vessel ischemic changes bilaterally. Carotid Dopplers were normal bilaterally. TTE showed ejection fraction of 65% . EKG showed sinus rhythm with right bundle branch block as well as a first- degree block. There were no changes from previous EKG. Cardiology was consulted and signed off on the patient as there were no findings to account for a syncopal event from a cardiac standpoint. They recommended outpatient follow-up in 2-3 weeks. Patient's lipid profile was obtained, and the patient was started on Lipitor 40 mg daily. PT OT were consulted. Orthostatic vital signs showed a drop in diastolic blood pressure greater than 10. We held the patient's Lasix and lisinopril, as well as coumadin, during the hospital course. As patient's orthostatic were positive, we have decided to discharge the patient home with the following changes to their antihypertensive medications. We will decrease the patient's Lasix to 20 mg daily. We will continue her lisinopril as prescribed. We will discontinue her amlodipine. We will continue her clonidine. We have given the patient instructions to hold her Coumadin tonight. She may resume her Coumadin dosage tomorrow. Patient is instructed to follow-up with her primary care provider in the next week to set up for a Holter monitor. She needs to follow-up with cardiology in the next 2- 3 weeks. As patient was found to have a UTI during hospitalization, we will discharge the patient home with 2 more days of Cefdinir 300 mg twice a day, as she received 3 doses of IV ceftriaxone during the hospitalization. Patient was resting comfortably this morning with family at the bedside. All of her questions were addressed, and the patient as well as her family expressed understanding of the plan. - Time Spent with Patient Total time spent providing and/or coordinating discharge services: Greater than 30 minutes (40 minutes) - Constitutional Vitals: Temp Pulse Resp BP Pulse Ox 97.7 F 60 15 115/71 98 02/22/17 06:41 02/22/17 06:41 02/22/17 06:41 02/22/17 09:35 02/22/17 06:41 General appearance: Present: cooperative, A&O X 3, no acute distress, answers questions appropriately - Respiratory Respiratory exam: Present: CTAB. Absent: accessory muscle use, rales, rhonchi, wheezes - Cardiovascular Cardiovascular exam: Present: RRR, +S1, +S2. Absent: diastolic murmur, gallop, rubs, systolic murmur - GI/Abdominal GI/Abdominal exam: Present: normal bowel sounds, soft, no peritoneal signs. Absent: distended, tenderness - Extremities Exam Extremities exam: Present: warm, radial pulses palpable and symmetrical. Absent : calf tenderness, cyanotic, pedal edema - VTE Documentation of Mechanical Device: Graduated compression elastic hosiery <Raulito Monsivais - Last Filed: 02/22/17 11:18> Date of Encounter: 02/22/17 Procedures/tests Complete & Pending: Procedures Performed prior 72 hours Category Date Time Status MR head/brain wo con [MR] Stat MRI 02/20/17 17:25 Completed EV carotid duplex imaging BI Routine Y 02/21/17 13:49 Completed EV echocardiogram Routine Y 02/21/17 13:44 Completed Date of admission: 02/20/17 12:55 Primary care physician: Scotty Ya DO Consults: 02/20/17 13:43 Consult to Occupational Therapy [CONS] Routine Comment: Evaluate, develop and implement POC Reason for Consult: syncope 02/20/17 13:44 Consult to Physical Therapy [CONS] Routine Comment: Evaluate, develop and implement POC Reason for Consult: syncope 02/20/17 14:59 Consult to Wire Coiler Machine Operator [CONS] Routine Reason for SW Consult: patient lives alone, syncopal episode 02/20/17 19:11 Consult to Cardiology [CONS] Routine Comment: Consulting Provider: Alexis Mary Reason for Consult: syncope - first degree AV Block RBB Time Notified: 19:13 Call Completed: No 02/21/17 14:40 PICC Consult [Consult to Invasive Line Access Team] [CONS] Routine Reason for Consult: Patient has limited IV access Line Type: [facility] Hospital course: Ms. Jones is a 86 year old female - Time Spent with Patient Total time spent providing and/or coordinating discharge services: - Constitutional Vitals: Temp Pulse Resp BP Pulse Ox 97.7 F 60 15 115/71 98 02/22/17 06:41 02/22/17 06:41 02/22/17 06:41 02/22/17 09:35 02/22/17 06:41 - Attending Attestation Syncope likely secondary to orthostatic hypotension exacerbated by UTI/ dehydration Complete 2 more days of Cedinir Hold Coumadin and start taking 2.5 mg daily until next appointment with primary care physician Stop amlodipine, continue clonidine, lisinopril. I examined this patient and my medical decision-making was reviewed with the Resident Physician. I agree with the documented findings, disposition and treatment plan as described except to the extent set forth below.
== END 2017-02-22 12:40 | disposition home or self-care (01) ==
LOC: 3BNU 10:45 → EMEROO 10:45 → SUATTDRO 12:55 → 3BNU 13:56
PROVIDERS: ADMIT Nurse Practitioner Family; ATTEND Internal Medicine

== ENCOUNTER 2020-01-25 12:04 | Inpatient (IN) ==
[2020-01-25] MEDS ORDERED: Isovue-370 500 ML BOTTLE IVP ONE (12:26)
[2020-01-25] MEDS ORDERED: 0.9 % Sodium Chloride 1,000 ML IVC ONE (12:27)
[2020-01-25] MEDS ORDERED: Prochlorperazine 10 MG/2 ML VIAL IVP STA (12:27)
[2020-01-25 12:51] LABS: Basophils # 0.1 K/mcL (0.0-0.2); Basophils % 0.7 %; Eosinophils # 0.3 K/mcL (0.0-0.6); Eosinophils % 4.2 %; Hematocrit 35.1 % (35.3-44.9); Hemoglobin 11.1 g/dL (11.5-15.4); Immature Granulocytes % 0.3 % (0-4); Lymphocytes # 2.4 K/mcL (0.6-4.6); Lymphocytes % 31.3 %; Mean Corpuscular HGB Conc 31.6 g/dL (31.6-35.5); Mean Platelet Volume 10.7 fL (9.4-12.4); Monocytes # 0.8 K/mcL (0.0-1.3); Monocytes % 10.4 %; Platelet Count 194 K/mcL (140-400); Red Blood Count 3.58 M/mcL (3.82-4.97); Red Cell Distribution Width 13.2 % (11.5-14.5); Segmented Neutrophils % 53.1 %; White Blood Count 7.6 K/mcL (4.3-11.1)
[2020-01-25 12:59] LABS: INR 3.4; Prothrombin Time 38.5 Seconds (9.4-12.1)
[2020-01-25 13:45] LABS: BUN/Creatinine Ratio 31 (6-26); Blood Urea Nitrogen 37 mg/dL (8-23); Calcium 9.3 mg/dL (8.6-10.3); Carbon Dioxide 17 mEq/L (23-29); Chloride 105 mEq/L (98-107); Glucose 158 mg/dL (70-105); Osmolality,Calculated 290 (280-300); Potassium 4.7 mEq/L (3.5-5.1); Sodium 134 mEq/L (136-145); Troponin I < 0.03 ng/mL (< 0.04); eGFR For African Americans 52 (> 60); eGFR For Non-African Americans 43 (> 60)
[2020-01-25] MEDS ORDERED: Ondansetron 4 MG/2 ML VIAL IVP PRN (17:14)
[2020-01-25] MEDS ORDERED: Naloxone 0.4 MG/ML INJ IVP PRN (17:14)
[2020-01-25] MEDS ORDERED: Acetaminophen 325 MG TABLET PO PRN (17:14)
[2020-01-25] MEDS ORDERED: D5% in Water 1,000 ML IVC PRN (17:21)
[2020-01-25] MEDS ORDERED: *HR* Dextrose 50 % in Water (Vial) 50 ML VIAL IVP PRN (17:21)
[2020-01-25] MEDS ORDERED: Dextrose Gel 15 GM/37.5 ML TUBE PO PRN ×2 (17:21)
[2020-01-25] MEDS: amLODIPine 5 MG TABLET PO SCH (18:46)
[2020-01-25] MEDS: cloNIDine HCL 0.1 MG TABLET PO SCH (19:49)
[2020-01-26 01:13] LABS: Basophils % 0.4 %; Eosinophils # 0.3 K/mcL (0.0-0.6); Eosinophils % 3.8 %; Hematocrit 33.3 % (35.3-44.9); Hemoglobin 10.7 g/dL (11.5-15.4); Immature Granulocytes % 0.3 % (0-4); Lymphocytes # 2.2 K/mcL (0.6-4.6); Lymphocytes % 28.9 %; Mean Corpuscular HGB Conc 32.1 g/dL (31.6-35.5); Mean Corpuscular Hemoglobin 31.7 pg (28.0-33.3); Mean Corpuscular Volume 98.5 fL (83.0-100.0); Mean Platelet Volume 11.1 fL (9.4-12.4); Monocytes # 0.7 K/mcL (0.0-1.3); Monocytes % 9.3 %; Neutrophils # 4.4 K/mcL (1.6-8.9); Platelet Count 209 K/mcL (140-400); Red Blood Count 3.38 M/mcL (3.82-4.97); Red Cell Distribution Width 13.2 % (11.5-14.5); Segmented Neutrophils % 57.3 %; White Blood Count 7.6 K/mcL (4.3-11.1)
[2020-01-26 01:33] LABS: BUN/Creatinine Ratio 28 (6-26); Blood Urea Nitrogen 25 mg/dL (8-23); Calcium 8.8 mg/dL (8.6-10.3); Carbon Dioxide 22 mEq/L (23-29); Chloride 106 mEq/L (98-107); Glucose 150 mg/dL (70-105); Osmolality,Calculated 291 (280-300); Potassium 4.3 mEq/L (3.5-5.1); Sodium 137 mEq/L (136-145); eGFR For African Americans > 60 (> 60); eGFR For Non-African Americans 59 (> 60)
[2020-01-26] MEDS: *HR* HYDROcodone/Acet 5/325 mg TABLET PO PRN ×2 (03:15→11:01)
[2020-01-26] MEDS ORDERED: carvediloL 6.25 MG TABLET PO SCH (08:00)
[2020-01-26] MEDS: Insulin LISPRO 300 UNITS/3 ML VIAL SQ SCH ×3 (08:22→17:20)
[2020-01-26] MEDS: amLODIPine 5 MG TABLET PO SCH (08:22)
[2020-01-26] MEDS: cloNIDine HCL 0.1 MG TABLET PO SCH ×3 (08:22→20:40)
[2020-01-26] MEDS: lisinopriL 20 MG TABLET PO SCH ×2 (10:54→20:39)
[2020-01-26] MEDS: atenoloL 25 MG TABLET PO SCH ×2 (10:54→20:40)
[2020-01-26] MEDS: Furosemide 20 MG TABLET PO SCH (10:54)
[2020-01-26] MEDS ORDERED: Melatonin 3 MG TABLET PO PRN (14:16)
[2020-01-26] MEDS: hydrALAZINE 25 MG TABLET PO SCH (15:55)
[2020-01-26 17:48] LABS: INR 2.8; Prothrombin Time 32.3 Seconds (9.4-12.1)
[2020-01-26] MEDS ORDERED: Warfarin perPT PO SCH (18:00)
[2020-01-26] MEDS ORDERED: *HR* Warfarin 2.5 MG TABLET PO ONE (18:10)
[2020-01-26] MEDS: OXcarbazepine 150 MG TABLET PO SCH (20:40)
[2020-01-26] MEDS ORDERED: Insulin DETEMIR 100 UNIT/ML X5UNITS SQ SCH (21:00)
[2020-01-27] MEDS: hydrALAZINE 25 MG TABLET PO SCH ×2 (00:40→07:58)
[2020-01-27 03:34] LABS: Basophils % 0.5 %; Eosinophils # 0.3 K/mcL (0.0-0.6); Eosinophils % 3.5 %; Hematocrit 35.1 % (35.3-44.9); Hemoglobin 11.3 g/dL (11.5-15.4); Immature Granulocytes % 0.2 % (0-4); Lymphocytes # 2.6 K/mcL (0.6-4.6); Lymphocytes % 31.9 %; Mean Corpuscular HGB Conc 32.2 g/dL (31.6-35.5); Mean Corpuscular Hemoglobin 31.6 pg (28.0-33.3); Mean Platelet Volume 11.1 fL (9.4-12.4); Monocytes # 0.8 K/mcL (0.0-1.3); Monocytes % 9.7 %; Neutrophils # 4.5 K/mcL (1.6-8.9); Platelet Count 208 K/mcL (140-400); Red Blood Count 3.58 M/mcL (3.82-4.97); Red Cell Distribution Width 13.2 % (11.5-14.5); Segmented Neutrophils % 54.2 %; White Blood Count 8.2 K/mcL (4.3-11.1)
[2020-01-27 03:35] LABS: INR 2.5; Prothrombin Time 28.2 Seconds (9.4-12.1)
[2020-01-27 03:51] LABS: BUN/Creatinine Ratio 20 (6-26); Blood Urea Nitrogen 20 mg/dL (8-23); Calcium 9.1 mg/dL (8.6-10.3); Carbon Dioxide 24 mEq/L (23-29); Chloride 103 mEq/L (98-107); Glucose 187 mg/dL (70-105); Magnesium 1.9 mg/dL (1.6-2.6); Osmolality,Calculated 286 (280-300); Phosphorous 2.3 mg/dL (2.7-4.5); Potassium 4.3 mEq/L (3.5-5.1); Sodium 134 mEq/L (136-145); eGFR For African Americans > 60 (> 60); eGFR For Non-African Americans 52 (> 60)
[2020-01-27] MEDS: *HR* HYDROcodone/Acet 5/325 mg TABLET PO PRN (05:24)
[2020-01-27] MEDS: lisinopriL 20 MG TABLET PO SCH (07:58)
[2020-01-27] MEDS: cloNIDine HCL 0.1 MG TABLET PO SCH (07:58)
[2020-01-27] MEDS: atenoloL 25 MG TABLET PO SCH (07:58)
[2020-01-27] MEDS: OXcarbazepine 150 MG TABLET PO SCH (08:00)
[2020-01-27] MEDS: amLODIPine 5 MG TABLET PO SCH (08:00)
[2020-01-27] MEDS: Furosemide 20 MG TABLET PO SCH (08:01)
[2020-01-27] MEDS: Insulin LISPRO 300 UNITS/3 ML VIAL SQ SCH (08:02)
[2020-01-27] MEDS ORDERED: Multivit/Ca/Min/Fe/FA 1 TAB TABLET PO SCH (09:00)
[2020-01-27] MEDS ORDERED: Cholecalciferol (D-3) 1,000 UNIT (25MCG) TABLET PO SCH (09:00)
[2020-01-27] MEDS ORDERED: polyethylene glycoL 3350 17 GM POWD.PACK PO SCH (09:00)
[2020-01-27 10:46] VITALS: BP 138/61
== END 2020-01-27 13:43 | disposition home or self-care (01) | DRG 552 ==
LOC: EMEROOARM 12:04 → 3BNU 12:04 → SUATTDRO 16:48 → 3BNU 17:49
PROVIDERS: ADMIT Internal Medicine; ATTEND Internal Medicine